=== PATIENT | male | born 2000 | race Two or more races ===

== ENCOUNTER 2023-04-15 10:06 | Day surgery (SDC) | payer OTHER ==
[~2023-04-15] VITALS: Ht 180.3 cm; Wt 83.9 kg
[2023-04-15] MEDS ORDERED: CILOXAN5 ML OTIC (19:37)
[2023-04-15] MEDS ORDERED: CEPHALEXIN500 MG PO (19:37)
== END 2023-04-15 22:05 | disposition home or self-care (01) ==
LOC: CIR.AMB 10:06
PROVIDERS: ATTEND Otolaryngology Otology & Neurotology
DX: H71.92 Unspecified cholesteatoma, left ear (principal); H72.02 Central perforation of tympanic membrane, left ear; H71.02 Cholesteatoma of attic, left ear; H90.A12 Conductive hearing loss, unilateral, left ear with restricted hearing on the contralateral side; H72.12 Attic perforation of tympanic membrane, left ear

== ENCOUNTER 2024-12-21 05:26 | Day surgery (SDC) | payer OTHER ==
[2024-12-18 09:22] VITALS: BP 138/85
[2024-12-18 09:48] LABS: HEMATOCRIT 45.7 % (39.0-48.0); MEAN CORPUSCULAR HEMOGLOBIN 28.6 pg (27.00-32.0); MEAN CORPUSCULAR HGB CONC 32.9 g/dl (32.0-36.0); PLATELET COUNT 281 K/uL (150-450); RED BLOOD COUNT 5.25 M/uL (4.00-6.00); RED CELL DISTRIBUTION WIDTH 13.4 % (11.5-14.5)
[2024-12-18 09:50] LABS: PH,URINE 5.5 (5.0-8.0); URINE APPEARANCE Clear; URINE BILIRRUBIN Negative (NEGATIVE); URINE BLOOD Negative; URINE COLOR Yellow; URINE GLUCOSE Negative (NEGATIVE); URINE KETONE Negative (NEGATIVE); URINE LEUKOCYTE Negative; URINE NITRATE Negative; URINE PROTEIN Negative (NEGATIVE); URINE UROBILINOGEN 0.2 E.U./dl
[2024-12-18 09:55] LABS: URINE BACTERIA 13.4 uL (0.0-1933); URINE EPITHELIAL CELLS 1.4 uL (0.0-38.8); URINE RBC 5.5 uL (0.0-20.8); URINE WBC 4.2 uL (0.0-23.2)
[2024-12-18 10:12] LABS: INR 1.02; PARTIAL THROMBOPLASTIN TIME 29.6 SECONDS (22.0-34.0); PROTHROMBIN TIME 11.1 SECONDS (9.0-11.5)
[2024-12-18 10:57] LABS: ALBUMIN 4.3 gm/dL (3.4-5.0); CALCIUM 9.8 mg/dL (8.5-10.1); CREATININE SERUM 0.82 mg/dL (0.70-1.30); GFR 116.43; PHOSPHOROUS 4.5 mg/dL (2.5-4.9); POTASSIUM 5.05 mEq/L (3.5-5.1)
[~2024-12-21] VITALS: Ht 180.3 cm; Wt 88.5 kg
[~2024-12-21 05:26] MED LIST: CEPHALEXIN500 MG PO; CILOXAN5 ML OTIC; CIPROFLOXACIN2.5 ML OTIC
[2024-12-21] MEDS ORDERED: CEFAZOLIN SODIUM 1,000 MG VIAL ONE (07:00)
[2024-12-21] MEDS ORDERED: EPINEPHRINE HCL/PF 1 MG/ML AMPUL ONE (07:02)
[2024-12-21] MEDS ORDERED: LIDOCAINE HCL 1%/EPINEPHRINE 20ML VIAL IJ ONE (07:02)
[2024-12-21] MEDS ORDERED: POVIDONE-IODINE 118 ML BOTT TOP ONE (07:02)
[2024-12-21] MEDS ORDERED: CIPROFLOXACIN HCL 0.175 MG/DR DROPS OTIC ONE (08:15)
[2024-12-21] MEDS ORDERED: DEXAMETHASONE SODIUM PHOSPHATE 4 MG/ML VIAL ONE (09:02)
[2024-12-21] MEDS ORDERED: DEXAMETHASONE SODIUM PHOSPHATE 4 MG/ML VIAL IV ONE (09:15)
[2024-12-21] MEDS ORDERED: LEVOFLOXACIN500 MG PO (09:49)
[2024-12-21] MEDS ORDERED: CIPROFLOXACIN2.5 ML OTIC (09:49)
== END 2024-12-21 11:55 | disposition home or self-care (01) ==
LOC: CIR.AMB 05:26
PROVIDERS: ATTEND Otolaryngology Otology & Neurotology
DX: H71.22 Cholesteatoma of mastoid, left ear (principal); H72.12 Attic perforation of tympanic membrane, left ear